=== PATIENT | female | born 1945 | race African-American/Black ===

== ENCOUNTER 2018-06-25 11:30 | Outpatient (CLI) | payer MEDICARE, MEDICAID | END 2018-06-25 11:31 | disposition home or self-care (01) | LOC: BICMAMMO 11:30 | PROVIDERS: ATTEND Nurse Practitioner Family | DX: Z12.31 Encounter for screening mammogram for malignant neoplasm of breast (principal); Z80.3 Family history of malignant neoplasm of breast | CPT/HCPCS: 77063; 77067 ==

== ENCOUNTER 2020-03-07 10:41 | Emergency (ER) | payer MEDICARE, MEDICAID, OTHER ==
[2020-03-08 14:29] LABS: SARS-CoV-2 MS2 Positive; SARS-CoV-2 N Gene Negative; SARS-CoV-2 S Gene Negative; SARS-CoV-2 orf1ab Negative
== END 2020-03-07 11:01 | disposition home or self-care (01) ==
LOC: ERS 10:41
DX: Z20.828 Contact with and (suspected) exposure to other viral communicable diseases (principal); I10 Essential (primary) hypertension; Z79.82 Long term (current) use of aspirin
CPT/HCPCS: 99283; U0003; 87635

== ENCOUNTER 2022-03-27 13:26 | Outpatient (CLI) | payer MEDICARE, MEDICAID | END 2022-03-27 13:27 | disposition home or self-care (01) | LOC: BICMAMMO 13:26 | PROVIDERS: ATTEND Family Medicine | DX: Z13.820 Encounter for screening for osteoporosis (principal); Z78.0 Asymptomatic menopausal state; M85.89 Other specified disorders of bone density and structure, multiple sites | CPT/HCPCS: 77080 ==

== ENCOUNTER 2022-06-08 09:03 | Inpatient (IN) | payer MEDICARE, MEDICAID ==
[2022-06-08 09:51] LABS: Hemoglobin 11.7 g/dL (12.0-16.0); Mean Corpuscular HGB CONC 32.6 g/dL (32.0-36.0); Mean Corpuscular Hemoglobin 28.1 pg (27.0-31.0); Mean Platelet Volume 7.3 fL (7.4-10.4); Platelet Count 303 thou/uL (130-400); RBC Distribution Width 12.7 % (11.5-14.5); Red Blood Cell (RBC) Count 4.17 mill/uL (4.20-5.40); White Blood Cell (WBC) Count 4.2 thou/uL (4.8-10.8)
[2022-06-08 10:00] LABS: ALT (SGPT) 30 U/L (8-55); AST (SGOT) 30 U/L (5-34); Alkaline Phosphatase 73 U/L (40-110); Anion Gap 12 mmol/L (10-20); BUN (Urea Nitrogen) 18 mg/dL (9.8-20.1); Bilirubin, Total 0.5 mg/dL (0.2-1.2); Calc. Creatinine Clearance 0 mL/min (70-130); Calcium 9.6 mg/dL (7.8-10.44); Carbon Dioxide 26 mmol/L (23-31); Chloride 102 mmol/L (98-107); Estimated GFR 60; Globulin 4.5 g/dL (2.4-3.5); Glucose 119 mg/dL (83-110); Potassium 3.4 mmol/L (3.5-5.1); Protein, Total 8.5 g/dL (5.8-8.1); Sodium 137 mmol/L (136-145)
[2022-06-08 10:41] LABS: Eosinophils 1 % (0-10); Lymphocytes 30 % (21-51); MDiff Complete? YES; Monocytes 8 % (0-10); Neutrophil 61 % (42-75); Platelet Morphology Comment Appears Adequate; RBC Morphology Normal
[2022-06-08] MEDS ORDERED: Aspirin Chewable 81 MG TAB ONE (11:15)
[2022-06-08] MEDS ORDERED: Ondansetron ODT 4 MG TAB PO PRN (13:01)
[2022-06-08] MEDS ORDERED: Ondansetron PF 4 MG/2 ML Vial IVP PRN (13:01)
[2022-06-08] MEDS ORDERED: Acetaminophen 325 MG TAB PO PRN (13:01)
[2022-06-08 13:12] VITALS: BMI 33.2
[2022-06-08 13:29] LABS: Bilirubin Negative (Negative); Blood, Urine Negative (Negative); Clarity Clear (Clear); Glucose, Urine (Dipstick) Normal (Negative); Ketone, Urine Negative (Negative); Leukocyte Negative Leu/uL (Negative); Nitrite Negative (Negative); Protein, Urine (Dipstick) Negative (Neg-Trace); Specific Gravity, Urine 1.012 (1.002-1.036); Urobilinogen Normal mg/dL (Less than 2)
[2022-06-08] MEDS ORDERED: Senokot S 8.6-50 MG TAB PO PRN (15:15)
[2022-06-08] MEDS ORDERED: Potassium Chloride 20 MEQ TAB PO SCH (15:22)
[2022-06-08 15:42] LABS: Hemoglobin A1c 5.6 % (4.0-6.0)
[2022-06-08 16:41] LABS: Troponin I Less than 0.010 ng/mL (< 0.028)
[2022-06-08] MEDS: Famotidine 20 MG TAB PO SCH (20:47)
[2022-06-08] MEDS: Atorvastatin Calcium 40 MG TAB PO SCH (20:49)
[2022-06-09 05:45] LABS: Anion Gap 10 mmol/L (10-20); BUN (Urea Nitrogen) 16 mg/dL (9.8-20.1); Calc. Creatinine Clearance 66 mL/min (70-130); Calcium 9.6 mg/dL (7.8-10.44); Carbon Dioxide 27 mmol/L (23-31); Cardiac Risk 5.9 (Less than 4.5); Chloride 105 mmol/L (98-107); Cholesterol 207 mg/dl (< 200 Desired); Estimated GFR 71; Glucose 99 mg/dL (83-110); HDL Cholesterol 35 mg/dL (>60 Neg Risk); LDL Cholesterol, Calculated 156 mg/dL; Potassium 3.7 mmol/L (3.5-5.1); Sodium 138 mmol/L (136-145); Triglycerides 82 mg/dL (Less than 150)
[2022-06-09 05:55] LABS: Hemoglobin 10.9 g/dL (12.0-16.0); Hypochromia SLIGHT = 6-15 cells (100X) (0-5/hpf); Lymphocytes 30 % (21-51); MDiff Complete? YES; Mean Corpuscular HGB CONC 32.2 g/dL (32.0-36.0); Mean Corpuscular Hemoglobin 28.1 pg (27.0-31.0); Mean Corpuscular Volume 87.2 fL (78.0-98.0); Mean Platelet Volume 7.3 fL (7.4-10.4); Monocytes 18 % (0-10); Neutrophil 50 % (42-75); Platelet Count 280 thou/uL (130-400); Platelet Morphology Comment Appears Adequate; RBC Distribution Width 12.8 % (11.5-14.5); Reactive Lymphocytes 2 % (0-10); Red Blood Cell (RBC) Count 3.89 mill/uL (4.20-5.40); White Blood Cell (WBC) Count 3.7 thou/uL (4.8-10.8)
[2022-06-09] MEDS ORDERED: FLU VACC QS2022-23(65YR UP)/PF 240 MCG/0.7 ML SYRINGE IM ONE (09:00)
[2022-06-09] MEDS ORDERED: Aspirin 81 mg Enteric Coated Tablet PO SCH (09:00)
[2022-06-09] MEDS: Aspirin 81 mg Enteric Coated Tablet PO SCH (10:06)
[2022-06-09] MEDS: Hydrochlorothiazide 25 MG TAB PO SCH (10:06)
[2022-06-09] MEDS: Losartan 25 MG TAB PO SCH (10:06)
[2022-06-09] MEDS: Famotidine 20 MG TAB PO SCH (10:06)
[2022-06-09] MEDS: Atorvastatin Calcium 40 MG TAB PO SCH (20:44)
[2022-06-10 05:51] LABS: Anion Gap 11 mmol/L (10-20); BUN (Urea Nitrogen) 17 mg/dL (9.8-20.1); Calc. Creatinine Clearance 67 mL/min (70-130); Calcium 9.6 mg/dL (7.8-10.44); Carbon Dioxide 26 mmol/L (23-31); Chloride 104 mmol/L (98-107); Estimated GFR 72; Glucose 106 mg/dL (83-110); Potassium 3.6 mmol/L (3.5-5.1); Sodium 137 mmol/L (136-145)
[2022-06-10 06:12] LABS: Hemoglobin 10.6 g/dL (12.0-16.0); Mean Corpuscular HGB CONC 31.7 g/dL (32.0-36.0); Mean Corpuscular Hemoglobin 27.1 pg (27.0-31.0); Mean Corpuscular Volume 85.2 fL (78.0-98.0); Mean Platelet Volume 7.4 fL (7.4-10.4); Platelet Count 280 thou/uL (130-400); RBC Distribution Width 12.7 % (11.5-14.5); Red Blood Cell (RBC) Count 3.91 mill/uL (4.20-5.40)
[2022-06-10] MEDS: Hydrochlorothiazide 25 MG TAB PO SCH (08:45)
[2022-06-10] MEDS: Losartan 25 MG TAB PO SCH (08:45)
[2022-06-10] MEDS: Famotidine 20 MG TAB PO SCH (08:45)
[2022-06-10] MEDS: Aspirin 81 mg Enteric Coated Tablet PO SCH (08:45)
[2022-06-10 09:11] LABS: Band 2 % (5-11); Eosinophils 2 % (0-10); Lymphocytes 27 % (21-51); MDiff Complete? YES; Monocytes 12 % (0-10); Neutrophil 57 % (42-75); RBC Morphology Normal
[2022-06-10] MEDS ORDERED: Clopidogrel Bisulfate 75 MG TAB PO SCH (17:15)
[2022-06-10] MEDS: Atorvastatin Calcium 40 MG TAB PO SCH (20:38)
[2022-06-11 05:52] LABS: Anion Gap 11 mmol/L (10-20); BUN (Urea Nitrogen) 15 mg/dL (9.8-20.1); Calc. Creatinine Clearance 65 mL/min (70-130); Calcium 9.5 mg/dL (7.8-10.44); Carbon Dioxide 27 mmol/L (23-31); Chloride 103 mmol/L (98-107); Estimated GFR 70; Glucose 100 mg/dL (83-110); Potassium 3.7 mmol/L (3.5-5.1); Sodium 137 mmol/L (136-145)
[2022-06-11 06:06] LABS: Eosinophils 1 % (0-10); Hemoglobin 10.8 g/dL (12.0-16.0); Hypochromia SLIGHT = 6-15 cells (100X) (0-5/hpf); Lymphocytes 51 % (21-51); MDiff Complete? YES; Mean Corpuscular HGB CONC 32.6 g/dL (32.0-36.0); Mean Corpuscular Hemoglobin 27.8 pg (27.0-31.0); Mean Corpuscular Volume 85.4 fL (78.0-98.0); Mean Platelet Volume 7.6 fL (7.4-10.4); Monocytes 11 % (0-10); Neutrophil 37 % (42-75); Platelet Count 287 thou/uL (130-400); Platelet Morphology Comment Appears Adequate; RBC Distribution Width 12.5 % (11.5-14.5); Red Blood Cell (RBC) Count 3.87 mill/uL (4.20-5.40); White Blood Cell (WBC) Count 3.8 thou/uL (4.8-10.8)
[2022-06-11] MEDS ORDERED: Clopidogrel Bisulfate 75 MG TAB PO SCH (09:00)
[2022-06-11] MEDS: Losartan 25 MG TAB PO SCH (09:37)
[2022-06-11] MEDS: Hydrochlorothiazide 25 MG TAB PO SCH (09:37)
[2022-06-11] MEDS: Famotidine 20 MG TAB PO SCH (09:38)
[2022-06-11] MEDS: Aspirin 81 mg Enteric Coated Tablet PO SCH (09:38)
[2022-06-11 12:31] VITALS: BP 135/72
[2022-06-11 13:35] VITALS: TEMP 98.2
== END 2022-06-11 13:53 | disposition home or self-care (01) | DRG 65 ==
LOC: ERS 09:03 → NEURO 11:43 → INTOOBSV 15:15 → OBSVTOIN 15:15
PROVIDERS: ADMIT Family Medicine; ATTEND Student in an Organized Health Care Education/Training Program
DX: I63.9 Cerebral infarction, unspecified (principal); G81.91 Hemiplegia, unspecified affecting right dominant side; I10 Essential (primary) hypertension; E78.5 Hyperlipidemia, unspecified; E87.6 Hypokalemia; E16.2 Hypoglycemia, unspecified; D64.9 Anemia, unspecified; Z20.822 Contact with and (suspected) exposure to COVID-19; Z90.49 Acquired absence of other specified parts of digestive tract; Z79.82 Long term (current) use of aspirin; Z79.899 Other long term (current) drug therapy
CPT/HCPCS: 36415; 70450; 70551; 80048; 80053; 80061; 81003; 83036; 83735; 84484; 85025; 90471; 90662; 90732; 93005; 93306; 93880; G0008; G0009; G0378; U0003; U0005

== ENCOUNTER 2024-03-17 13:18 | Outpatient (CLI) | payer OTHER | END 2024-03-17 13:19 | disposition home or self-care (01) | LOC: BICMAMMO 13:18 | PROVIDERS: ATTEND Family Medicine | DX: Z13.820 Encounter for screening for osteoporosis (principal); M85.89 Other specified disorders of bone density and structure, multiple sites | CPT/HCPCS: 77080 ==

== ENCOUNTER 2024-05-27 21:00 | Inpatient (IN) | payer OTHER ==
[~2024-05-27 21:00] MED LIST: Iopamidol-370 76% 500 ML MDV (1 ML CHARGE) ONE
[2024-05-27 21:40] LABS: #Basophils Less than 0.03 10x3/uL (0.0-0.2); %Basophils 0.1 % (0.0-1.0); %Eosinophils 0.5 % (0.0-10.0); %Monocytes 0.6 % (0.0-10.0); %Neutrophils 93.4 % (42.0-75.0); Hematocrit 30.7 % (36.0-47.0); Hemoglobin 10.4 g/dL (12.0-16.0); Mean Corpuscular HGB CONC 33.9 g/dL (32.0-36.0); Mean Corpuscular Hemoglobin 27.1 pg (27.0-31.0); Mean Corpuscular Volume 79.9 fL (78.0-98.0); Mean Platelet Volume 9.3 fL (7.4-10.4); Platelet Count 252 10x3/uL (130-400); RBC Distribution Width 13.5 % (11.5-14.5); Red Blood Cell (RBC) Count 3.84 mill/uL (4.20-5.40)
[2024-05-27 21:45] LABS: Bacteria/HPF None Seen HPF (None Seen); Bilirubin Negative (Negative); Blood, Urine 3+ (Negative); CAUTI Indications for Culture Dysuria,urgency,freq; Clarity Turbid (Clear); Glucose, Urine (Dipstick) Normal (Negative); Ketone, Urine Negative (Negative); Leukocyte 500 Leu/uL (Negative); Nitrite Negative (Negative); Protein, Urine (Dipstick) 50 mg/dL (Neg-Trace); Specific Gravity, Urine 1.011 (1.002-1.036); Squamous Epithelial 0-3 HPF (0-3); Urobilinogen Normal mg/dL (Less than 2); WBC/HPF Greater than 50 HPF (0-3); pH, Urine 5.5 (5.0-9.0)
[2024-05-27 21:47] LABS: Urine Culture Reflex Yes Yes
[2024-05-27 21:54] LABS: ALT (SGPT) 9 U/L (8-55); AST (SGOT) 22 U/L (5-34); Albumin 3.6 g/dL (3.4-4.8); Alkaline Phosphatase 86 U/L (40-110); Anion Gap 15 mmol/L (10-20); BUN (Urea Nitrogen) 19 mg/dL (9.8-20.1); Bilirubin, Total 0.4 mg/dL (0.2-1.2); Calc. Creatinine Clearance 0 mL/min (70-130); Calcium 9.8 mg/dL (7.8-10.44); Carbon Dioxide 25 mmol/L (23-31); Chloride 100 mmol/L (98-107); Estimated GFR 50; Globulin 5.2 g/dL (2.4-3.5); Glucose 113 mg/dL (83-110); Potassium 3.4 mmol/L (3.5-5.1); Protein, Total 8.8 g/dL (5.8-8.1); Sodium 137 mmol/L (136-145)
[2024-05-27] MEDS ORDERED: Acetaminophen 500 MG TAB ONE (21:57)
[2024-05-27] MEDS ORDERED: cefTRIAXone (ROCEPHIN) 2 GM VIAL ONE (21:57)
[2024-05-27] MEDS ORDERED: Sodium Chloride 0.9% 100 ML ONE (21:57)
[2024-05-27 23:45] LABS: Influenza A by NAA Not Detected (NotDetected); Influenza B by NAA Not Detected (NotDetected); SARS-CoV-2 NAA Rapid Test Not Detected (NotDetected)
[2024-05-28 00:47] VITALS: BMI 36.9
[2024-05-28] MEDS ORDERED: Electrolyte Replacement Protocol 1 EACH FS PRN (02:26)
[2024-05-28] MEDS ORDERED: Ondansetron ODT 4 MG TAB PO PRN (02:32)
[2024-05-28] MEDS ORDERED: Acetaminophen 650 MG Suppository PR PRN (02:32)
[2024-05-28] MEDS ORDERED: Ondansetron PF 4 MG/2 ML Vial IVP PRN (02:32)
[2024-05-28 03:06] LABS: Lactic Acid 2.44 mmol/L (0.5-2.2)
[2024-05-28] MEDS: Acetaminophen 325 MG TAB PO SCH (05:32)
[2024-05-28 06:05] LABS: #Basophils Less than 0.03 10x3/uL (0.0-0.2); #Eosinphils Less than 0.03 10x3/uL (0.0-0.7); %Basophils 0.1 % (0.0-1.0); %Lymphocytes 7.2 % (21.0-51.0); %Monocytes 8.3 % (0.0-10.0); %Neutrophils 84.1 % (42.0-75.0); Hematocrit 26.8 % (36.0-47.0); Hemoglobin 8.8 g/dL (12.0-16.0); Mean Corpuscular HGB CONC 32.8 g/dL (32.0-36.0); Mean Corpuscular Hemoglobin 26.8 pg (27.0-31.0); Mean Corpuscular Volume 81.7 fL (78.0-98.0); Mean Platelet Volume 9.8 fL (7.4-10.4); Platelet Count 236 10x3/uL (130-400); RBC Distribution Width 13.8 % (11.5-14.5); Red Blood Cell (RBC) Count 3.28 mill/uL (4.20-5.40)
[2024-05-28 06:56] LABS: Anion Gap 14 mmol/L (10-20); BUN (Urea Nitrogen) 16 mg/dL (9.8-20.1); Calc. Creatinine Clearance 51 mL/min (70-130); Calcium 8.8 mg/dL (7.8-10.44); Carbon Dioxide 22 mmol/L (23-31); Chloride 105 mmol/L (98-107); Estimated GFR 61; Glucose 143 mg/dL (83-110); Potassium 3.1 mmol/L (3.5-5.1); Sodium 138 mmol/L (136-145)
[2024-05-28] MEDS: Potassium Chloride 20 MEQ TAB PO SCH (09:11)
[2024-05-28] MEDS: Famotidine 20 MG TAB PO SCH (09:12)
[2024-05-28] MEDS: Clopidogrel Bisulfate 75 MG TAB PO SCH (09:12)
[2024-05-28] MEDS: Hydrochlorothiazide 25 MG TAB PO SCH (09:12)
[2024-05-28] MEDS: Aspirin 81 mg Enteric Coated Tablet PO SCH (09:13)
[2024-05-28] MEDS: Famotidine/PF 20 mg/2ml Vial SLOW IVP SCH (09:16)
[2024-05-28] MEDS: Losartan 25 MG TAB PO SCH (11:41)
[2024-05-28] MEDS: cefTRIAXone\\ROCEPHIN 2 GM in Sodium Chloride 0.9% 100 ML IVPB SCH (19:53)
[2024-05-28] MEDS: Atorvastatin Calcium 40 MG TAB PO SCH (19:54)
[2024-05-29 05:11] LABS: #Basophils Less than 0.03 10x3/uL (0.0-0.2); %Basophils 0.2 % (0.0-1.0); %Eosinophils 2.1 % (0.0-10.0); %Monocytes 18.6 % (0.0-10.0); %Neutrophils 60.9 % (42.0-75.0); Hematocrit 26.4 % (36.0-47.0); Hemoglobin 8.6 g/dL (12.0-16.0); Mean Corpuscular HGB CONC 32.6 g/dL (32.0-36.0); Mean Platelet Volume 9.5 fL (7.4-10.4); Platelet Count 236 10x3/uL (130-400); RBC Distribution Width 13.9 % (11.5-14.5); Red Blood Cell (RBC) Count 3.18 mill/uL (4.20-5.40)
[2024-05-29 05:37] LABS: Anion Gap 12 mmol/L (10-20); BUN (Urea Nitrogen) 13 mg/dL (9.8-20.1); Calc. Creatinine Clearance 61 mL/min (70-130); Carbon Dioxide 23 mmol/L (23-31); Chloride 106 mmol/L (98-107); Estimated GFR 75; Glucose 95 mg/dL (83-110); Potassium 3.6 mmol/L (3.5-5.1); Sodium 137 mmol/L (136-145)
[2024-05-29 11:39] VITALS: BP 155/84; TEMP 98
== END 2024-05-29 12:24 | disposition home or self-care (01) | DRG 872 ==
LOC: ERS 21:00 → INTOOBSV 23:59 → SURG B 23:59 → OBSVTOIN 05-28 13:01
PROVIDERS: ADMIT Student in an Organized Health Care Education/Training Program; ATTEND Internal Medicine
DX: A41.9 Sepsis, unspecified organism (principal); N39.0 Urinary tract infection, site not specified; E87.6 Hypokalemia; I10 Essential (primary) hypertension; Z86.73 Personal history of transient ischemic attack (TIA), and cerebral infarction without residual deficits; E78.5 Hyperlipidemia, unspecified; Z90.49 Acquired absence of other specified parts of digestive tract; Z79.82 Long term (current) use of aspirin; Z79.899 Other long term (current) drug therapy; E78.00 Pure hypercholesterolemia, unspecified
CPT/HCPCS: 36415; 71045; 74177; 80048; 80053; 81001; 83605; 85025; 87040; 87077; 87086; 87186; 93005; 94760; J0696; Q9967

== ENCOUNTER 2025-04-03 11:10 | Inpatient (IN) | payer OTHER ==
[2025-04-03 12:12] LABS: #Basophils Less than 0.03 10x3/uL (0.0-0.2); #Eosinophils 0.09 10x3/uL (0.0-0.7); #Monocytes 0.40 10x3/uL (0.11-0.59); #Neutrophils 1.18 10x3/uL (1.40-6.50); %Basophils 0.4 % (0.0-1.0); %Eosinophils 3.8 % (0.0-10.0); %Lymphocytes 28.4 % (21.0-51.0); %Monocytes 16.9 % (0.0-10.0); %Neutrophils 50.1 % (42.0-75.0); Hematocrit 31.3 % (36.0-47.0); Hemoglobin 10.1 g/dL (12.0-16.0); Mean Corpuscular Hemoglobin 26.2 pg (27.0-31.0); Mean Corpuscular Volume 81.1 fL (78.0-98.0); Platelet Count 259 10x3/uL (130-400); Red Blood Cell (RBC) Count 3.86 mill/uL (4.20-5.40); White Blood Cell (WBC) Count 2.36 10x3/uL (4.8-10.8)
[2025-04-03 12:27] LABS: ALT (SGPT) 17 U/L (Less than 34); AST (SGOT) 37 U/L (11-34); Albumin 3.8 g/dL (3.1-4.5); Alkaline Phosphatase 83 U/L (40-110); Anion Gap 12 mmol/L (10-20); BUN (Urea Nitrogen) 21 mg/dL (9.8-20.1); Bilirubin, Total 0.4 mg/dL (0.3-1.2); Calc. Creatinine Clearance 0 mL/min (70-130); Calcium 9.2 mg/dL (7.8-10.44); Carbon Dioxide 26 mmol/L (23-31); Chloride 103 mmol/L (98-107); Globulin 4.6 g/dL (2.4-3.5); Glucose 97 mg/dL (83-110); Potassium 3.4 mmol/L (3.5-5.1); Sodium 138 mmol/L (136-145)
[2025-04-03 12:31] LABS: Troponin I Less than 0.010 ng/mL (< 0.028)
[2025-04-03] MEDS ORDERED: Aspirin Chewable 81 MG TAB ONE (13:15)
[2025-04-03 15:40] LABS: Troponin I Less than 0.010 ng/mL (< 0.028)
[2025-04-03 19:19] LABS: Troponin I Less than 0.010 ng/mL (< 0.028)
[2025-04-03 20:08] VITALS: BMI 28.5
[2025-04-03] MEDS: Lidocaine 2% Viscous Solution 10 ML, Aluminum & Magnesium Hydroxide 30 ML SSW SCH (22:42)
[2025-04-03] MEDS: Nitroglycerin 0.4 MG TAB (25 Tab Bottle) SL PRN (22:43)
[2025-04-03 23:41] LABS: Troponin I 0.011 ng/mL (< 0.028)
[2025-04-04 05:57] LABS: #Basophils Less than 0.03 10x3/uL (0.0-0.2); #Eosinophils 0.03 10x3/uL (0.0-0.7); #Monocytes 0.47 10x3/uL (0.11-0.59); #Neutrophils 2.22 10x3/uL (1.40-6.50); %Basophils 0.3 % (0.0-1.0); %Eosinophils 0.9 % (0.0-10.0); %Lymphocytes 19.6 % (21.0-51.0); %Monocytes 13.8 % (0.0-10.0); %Neutrophils 65.1 % (42.0-75.0); Hematocrit 28.6 % (36.0-47.0); Hemoglobin 9.2 g/dL (12.0-16.0); Mean Corpuscular Hemoglobin 26.7 pg (27.0-31.0); Mean Corpuscular Volume 82.9 fL (78.0-98.0); Platelet Count 241 10x3/uL (130-400); Red Blood Cell (RBC) Count 3.45 mill/uL (4.20-5.40); White Blood Cell (WBC) Count 3.41 10x3/uL (4.8-10.8)
[2025-04-04 06:05] LABS: Anion Gap 14 mmol/L (10-20); BUN (Urea Nitrogen) 21 mg/dL (9.8-20.1); Calc. Creatinine Clearance 42 mL/min (70-130); Calcium 9.0 mg/dL (7.8-10.44); Carbon Dioxide 23 mmol/L (23-31); Cardiac Risk 4.0 (Less than 4.5); Chloride 105 mmol/L (98-107); Cholesterol 125 mg/dl (< 200 Desired); Glucose 99 mg/dL (83-110); HDL Cholesterol 31 mg/dL (>60 Neg Risk); LDL Cholesterol, Calculated 78 mg/dL; Potassium 3.9 mmol/L (3.5-5.1); Sodium 138 mmol/L (136-145); Triglycerides 82 mg/dL (Less than 150)
[2025-04-04] MEDS ORDERED: [UNRECOGNIZED DRUG - REMARK] FS SCH (08:00)
[2025-04-04] MEDS ORDERED: Lidocaine 1% (PF) 30 ML VIAL ONE (08:16)
[2025-04-04] MEDS ORDERED: Heparin 10,000 UNITS/ 10 ML VIAL ONE (08:16)
[2025-04-04] MEDS ORDERED: Nitroglycerin 50 MG/250 ML BOT 0 ML ONE (08:16)
[2025-04-04] MEDS ORDERED: PHENYLEPHRINE-NS 100 MCG/ML 10 ML SYRINGE ONE (08:17)
[2025-04-04] MEDS ORDERED: Enoxaparin 40 MG (0.4 mL) SYRINGE SC SCH (09:00)
[2025-04-04] MEDS ORDERED: Iopamidol 370 76% 100 ML VIAL ONE (11:08)
[2025-04-04] MEDS: Aspirin Chewable 81 MG TAB PO SCH (11:36)
[2025-04-04] MEDS: Isosorbide Mononitrate 30 MG ER.TAB.S PO SCH (11:36)
[2025-04-04] MEDS: Calcium Carbonate 500 MG ChewTAB PO PRN (21:53)
[2025-04-05 05:58] LABS: Anion Gap 10 mmol/L (10-20); BUN (Urea Nitrogen) 14 mg/dL (9.8-20.1); Calc. Creatinine Clearance 51 mL/min (70-130); Calcium 8.9 mg/dL (7.8-10.44); Carbon Dioxide 25 mmol/L (23-31); Chloride 104 mmol/L (98-107); Glucose 89 mg/dL (83-110); Iron 33 ug/dL (50-170); Iron Binding Capacity, Total 185 mcg/dL (265-497); Potassium 3.5 mmol/L (3.5-5.1); Sodium 135 mmol/L (136-145)
[2025-04-05 06:21] LABS: Ferritin 983.9 ng/mL (10-291)
[2025-04-05 06:37] LABS: Hematocrit 25.4 % (36.0-47.0); Hemoglobin 8.2 g/dL (12.0-16.0); Mean Corpuscular Hemoglobin 26.5 pg (27.0-31.0); Mean Corpuscular Volume 82.2 fL (78.0-98.0); Platelet Count 194 10x3/uL (130-400); Red Blood Cell (RBC) Count 3.09 mill/uL (4.20-5.40); White Blood Cell (WBC) Count 3.46 10x3/uL (4.8-10.8)
[2025-04-05 07:49] LABS: Vitamin B12 1073.0 pg/mL (211-911)
[2025-04-05 09:47] LABS: Platelet Adequacy Comment Platelets Normal; RBC Morphology Within Normal Limits; Smudge Cells 2.0 %
[2025-04-05] MEDS: Pantoprazole 40 MG VIAL IVP SCH (10:23)
[2025-04-05] MEDS: Isosorbide Mononitrate 30 MG ER.TAB.S PO SCH (10:24)
[2025-04-05] MEDS: GoLYTELY 4,000 ml Bottle PO SCH (16:50)
[2025-04-06 05:34] LABS: #Basophils Less than 0.03 10x3/uL (0.0-0.2); #Eosinophils Less than 0.03 10x3/uL (0.0-0.7); #Monocytes 0.52 10x3/uL (0.11-0.59); #Neutrophils 1.46 10x3/uL (1.40-6.50); %Basophils 0.4 % (0.0-1.0); %Eosinophils 0.0 % (0.0-10.0); %Lymphocytes 24.3 % (21.0-51.0); %Monocytes 19.8 % (0.0-10.0); %Neutrophils 55.5 % (42.0-75.0); Hematocrit 24.8 % (36.0-47.0); Hemoglobin 8.0 g/dL (12.0-16.0); Mean Corpuscular Hemoglobin 26.6 pg (27.0-31.0); Mean Corpuscular Volume 82.4 fL (78.0-98.0); Platelet Count 205 10x3/uL (130-400); Red Blood Cell (RBC) Count 3.01 mill/uL (4.20-5.40); White Blood Cell (WBC) Count 2.63 10x3/uL (4.8-10.8)
[2025-04-06] MEDS: Acetaminophen 325 MG TAB PO PRN (06:06)
[2025-04-06 06:39] LABS: Anion Gap 12 mmol/L (10-20); BUN (Urea Nitrogen) 9 mg/dL (9.8-20.1); Calc. Creatinine Clearance 48 mL/min (70-130); Calcium 8.6 mg/dL (7.8-10.44); Carbon Dioxide 26 mmol/L (23-31); Chloride 104 mmol/L (98-107); Glucose 95 mg/dL (83-110); Potassium 3.2 mmol/L (3.5-5.1); Sodium 139 mmol/L (136-145)
[2025-04-06 08:25] VITALS: TEMP 98
[2025-04-06] MEDS ORDERED: PROPOFOL 40 ML ONE (08:51)
[2025-04-06 14:02] VITALS: BP 153/68
[2025-04-07] MEDS ORDERED: Pantoprazole 40 MG DR.TAB PO SCH (09:00)
== END 2025-04-06 14:02 | disposition home or self-care (01) | DRG 287 ==
LOC: ERS 11:10 → ERHOLD 13:39 → OBS 20:00 → OBSVTOIN 04-04 17:12
PROVIDERS: ADMIT Hospitalist; ATTEND Internal Medicine
PROC: B2111ZZ Fluoroscopy of Multiple Coronary Arteries using Low Osmolar Contrast (ICD-10-PCS; principal; 2025-04-04)
PROC: 0DJ08ZZ Inspection of Upper Intestinal Tract, Via Natural or Artificial Opening Endoscopic (ICD-10-PCS; 2025-04-06)
PROC: 0DJD8ZZ Inspection of Lower Intestinal Tract, Via Natural or Artificial Opening Endoscopic (ICD-10-PCS; 2025-04-06)
DX: I25.110 Atherosclerotic heart disease of native coronary artery with unstable angina pectoris (principal); E78.5 Hyperlipidemia, unspecified; I11.0 Hypertensive heart disease with heart failure; E87.6 Hypokalemia; D50.9 Iron deficiency anemia, unspecified; I73.9 Peripheral vascular disease, unspecified; D72.819 Decreased white blood cell count, unspecified; Z98.890 Other specified postprocedural states; Z90.49 Acquired absence of other specified parts of digestive tract; Z86.73 Personal history of transient ischemic attack (TIA), and cerebral infarction without residual deficits; Z86.0100 Personal history of colon polyps, unspecified
CPT/HCPCS: 36415; 71045; 80048; 80053; 80061; 82607; 82728; 83540; 83550; 83880; 84484; 85025; 93005; 93010; 93306; 93458; 99152; C1769; C1887; J0461; J1644; J2250; J2470; J2704; J3010; J7030; Q9967

== ENCOUNTER 2025-04-09 07:40 | Emergency (ER) | payer OTHER ==
[2025-04-09 08:44] LABS: Hematocrit 25.7 % (36.0-47.0); Hemoglobin 8.3 g/dL (12.0-16.0); Mean Corpuscular Hemoglobin 26.4 pg (27.0-31.0); Mean Corpuscular Volume 81.8 fL (78.0-98.0); Platelet Count 218 10x3/uL (130-400); Red Blood Cell (RBC) Count 3.14 mill/uL (4.20-5.40); White Blood Cell (WBC) Count 2.63 10x3/uL (4.8-10.8)
[2025-04-09] MEDS ORDERED: Famotidine/PF 20 mg/2ml Vial ONE (08:44)
[2025-04-09] MEDS ORDERED: Lidocaine Viscous Sol 2% 15 ml UD Cup ONE (08:44)
[2025-04-09] MEDS ORDERED: Mag-Al 1200 mg/1200 mg/30 ML UDCUP ONE (08:44)
[2025-04-09 08:59] LABS: ALT (SGPT) 13 U/L (Less than 34); AST (SGOT) 27 U/L (11-34); Albumin 3.2 g/dL (3.1-4.5); Alkaline Phosphatase 71 U/L (40-110); Anion Gap 10 mmol/L (10-20); BUN (Urea Nitrogen) 8 mg/dL (9.8-20.1); Bilirubin, Total 0.4 mg/dL (0.3-1.2); Calc. Creatinine Clearance 0 mL/min (70-130); Calcium 8.5 mg/dL (7.8-10.44); Carbon Dioxide 24 mmol/L (23-31); Chloride 108 mmol/L (98-107); Globulin 4.0 g/dL (2.4-3.5); Glucose 95 mg/dL (83-110); Magnesium 1.8 mg/dL (1.6-2.6); Potassium 3.2 mmol/L (3.5-5.1); Sodium 139 mmol/L (136-145)
[2025-04-09 09:05] LABS: Troponin I Less than 0.010 ng/mL (< 0.028)
[2025-04-09 09:28] LABS: Anisocytosis SLIGHT = 6-15 cells HPF (0-5); Platelet Adequacy Comment Platelets Normal; Poikilocytosis SLIGHT = 6-15 cells HPF (0-5); Polychromasia SLIGHT = 2-3 cells HPF (0-2)
[2025-04-09 11:03] LABS: Bacteria/HPF None Seen HPF (None Seen); CAUTI Indications for Culture Dysuria,urgency,freq; Glucose, Urine (Dipstick) Normal (Negative); Leukocyte Negative Leu/uL (Negative); Protein, Urine (Dipstick) Negative (Neg-Trace); RBC/HPF None Seen HPF (0-3); Specific Gravity, Urine 1.010 (1.002-1.036); WBC/HPF 0-3 HPF (0-3)
[2025-04-09 11:05] LABS: Urine Culture Reflex No No
[2025-04-09 11:45] LABS: Troponin I Less than 0.010 ng/mL (< 0.028)
== END 2025-04-09 12:30 | disposition home or self-care (01) ==
LOC: ERS 07:40
DX: R07.9 Chest pain, unspecified (principal); D61.811 Other drug-induced pancytopenia; I10 Essential (primary) hypertension
CPT/HCPCS: 71045; 80053; 81001; 83735; 83880; 84484 ×2; 85025; 93005; 94760; J1308; 36415; 96374